=== PATIENT | female | born 1980 | race Caucasian/White ===

== ENCOUNTER 2020-11-28 07:31 | Emergency (ER) | payer MEDICAID ==
[2020-11-28] MEDS ORDERED: Sodium Chloride 0.9% 10 ML Syringe FLUSH PRN (07:43)
[2020-11-28] MEDS ORDERED: Sodium Chloride 0.9% 1,000 ML IV ONE (07:45)
--- NOTE | 2020-11-28 10:29 | EDM.PDOC ---
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 She states she was seen in the clinic on Sunday and had US but dates variable 5-8 weeks per chart plus she said they saw some bleeding (although since I have no access to those records unsure what she means by this). She then went home and noted last night to started having some cramping, woke up this morning with gush of blood and now having cramping although since getting to the ER has been decreasing in nature. She had an episode of light headedness when sitting up on ER bed but that has resolved. 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 duodenal switch Meds--PNV, progesterone Tob--former EtOH--rare Drugs--denies NKDA Left Abdomen Pain Score (Numeric/FACES): 8 - Related Data Allergies Allergy/AdvReac Type Severity Reaction Status Date / Time No Known Allergies Allergy Verified 07/28/16 09:24 Home Meds: Home Meds Ferrous Fumarate [Ferrocite] 324 mg PO DAILY 10/30/15 [History] Omeprazole 20 mg PO BID 10/30/15 [History] Ibuprofen 600 mg PO Q6H PRN 11/21/15 [History] Multivitamin [Multi-Vitamin Daily] 1 tab PO BID 07/26/16 [History] Cyanocobalamin (Vitamin B12) [Vitamin B12] 1,000 mcg PO DAILY 07/28/16 [History] Vitamin B Complex [B Complex] 1 tab PO DAILY 07/28/16 [History] Progesterone, Micronized [Progesterone] 100 mg PO DAILY 11/28/20 [History] Past Medical History - Past Health History Medical/Surgical History: Denies Medical/Surgical History HEENT History: Reports: Impaired Vision Gastrointestinal History: Reports: GERD Genitourinary History: Reports: None 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: Musculoskeletal History: Reports: Back Pain, Chronic Endocrine/Metabolic History: Reports: Obesity/BMI 30+ - Infectious Disease History Infectious Disease History: Reports: Chicken Pox - Past Surgical History HEENT Surgical History: Reports: None GI Surgical History: Reports: None Social & Family History - Tobacco Use Tobacco Use Status *Q: Never Tobacco User - Caffeine Use Caffeine Use: Reports: Soda - Recreational Drug Use Recreational Drug Use: No ED ROS GENERAL - Review of Systems Review Of Systems: See Below Constitutional: Reports: No Symptoms HEENT: Reports: No Symptoms Respiratory: Reports: No Symptoms Cardiovascular: Reports: No Symptoms Endocrine: Reports: No Symptoms GI/Abdominal: Reports: Abdominal Pain (cramping) : Reports: Other (vaginal bleeding in ) Musculoskeletal: Reports: No Symptoms Skin: Reports: No Symptoms Neurological: Reports: Dizziness Psychiatric: Reports: No Symptoms Hematologic/Lymphatic: Reports: No Symptoms Immunologic: Reports: No Symptoms ED EXAM - Physical Exam Exam: See Below Exam Limited By: No Limitations General Appearance: Alert, WD/WN, No Apparent Distress, Obese (morbid obesity limits exam) Eye Exam: Bilateral Eye: EOMI, Normal Inspection, PERRL Ears: Normal External Exam Nose: Normal Inspection Throat/Mouth: Normal Inspection, Normal Oropharynx Head: Atraumatic, Normocephalic Neck: Normal Inspection, Supple, Non-Tender, Full Range of Motion Respiratory/Chest: No Respiratory Distress, Lungs Clear, Normal Breath Sounds, No Accessory Muscle Use Cardiovascular: Normal Peripheral Pulses, Regular Rate, Rhythm, No Edema, No Murmur GI/Abdominal Exam: Normal Bowel Sounds, Soft, Non-Tender Rectal Exam: Deferred Back Exam: Normal Inspection Extremities: Normal Inspection, Normal Range of Motion, No Pedal Edema, Normal Capillary Refill Neurological: Alert, Oriented, Normal Cognition, Normal Gait, No Motor/Sensory Deficits Psychiatric: Normal Affect, Normal Mood Skin Exam: Warm, Dry, Intact, Normal Color Course - Vital Signs Text/Narrative:: 1020--in room to examine patient/pelvic. noted to have large bloody area on chux pad and clots external. 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 large lighted speculum inserted, noted for some clots in vaginal vault & at cervical os. Vaginal vault cleaned out with ring forceps/gauze with good visualization of cervical os--no active bleeding observed. speculum removed and bimanual--noted for cervical os to be soft/shortened/open. Majo RN at bedside for chaparon/assistance. d/w patient today's labs and plan for US but likely miscarriage; due to amount of bleeding, systolic BPs-90-100, and episode at presentation of lightheaded will repeat CBC at noon. verbalize understanding/all questions answered at this time 1148--notified by [employer] tech that preliminary reading is for uterus full of ecogenic material, no sac identified (was identified on Sunday US per his review of previous records/reports); final radiology reading pending. will recheck H/H at 1200, if stable plan for d/c and information assurance analyst follow up tomorrow in clinic. patient verbalized understanding/agreement with plan of care 1242--repeat CBC returned fairly unchanged/stable. initial H/H-12.2/37.8, 4 hour repeat 11.7/34.7. patient has been up in room to BR without any further episodes of lightheaded, she report bleeding has decreased. ready for d/c at this time Last Recorded V/S: Last Vital Signs Temp 97.9 F 11/28/20 07:34 Pulse 67 11/28/20 07:34 Resp 16 11/28/20 07:34 BP 107/63 11/28/20 07:34 Pulse Ox 100 11/28/20 07:34 - Orders/Labs/Meds Orders: Active Orders 24 hr Category Date Time Status OB 1st Tri Sgl 1st Gest [US] Stat Exams 11/28/20 10:21 Taken Sodium Chloride 0.9% [Saline Flush] Med 11/28/20 07:43 Active 10 ml FLUSH ASDIRECTED PRN Saline Lock Insert [OM.PC] Routine Oth 11/28/20 07:43 Ordered Medication Orders Sodium Chloride (Sodium Chloride 0.9% 10 Ml Syringe) 10 ml FLUSH ASDIRECTED PRN PRN Reason: Keep Vein Open Last Admin: 11/28/20 08:03 Dose: 10 ml Documented by: ERICA Labs: Laboratory Tests 11/28/20 11/28/20 11/28/20 Range/Units 08:05 08:05 08:05 WBC 7.2 (4.5-11.0) K/uL RBC 4.15 (3.30-5.50) M/uL Hgb 12.2 (12.0-15.0) g/dL Hct 37.8 (36.0-48.0) % MCV 91 (80-98) fL MCH 29 (27-31) pg MCHC 32 (32-36) % Plt Count 219 (150-400) K/uL Neut % (Auto) 62 (36-66) % Lymph % (Auto) 26 (24-44) % [place] % (Auto) 9 H (2-6) % Eos % (Auto) 3 (2-4) % Baso % (Auto) 0 (0-1) % Sodium 140 (140-148) mmol/L Potassium 4.1 (3.6-5.2) mmol/L Chloride 105 (100-108) mmol/L Carbon Dioxide 26 (21-32) mmol/L Anion Gap 9.0 (5.0-14.0) mmol/L BUN 16 (7-18) mg/dL Creatinine 0.8 (0.6-1.0) mg/dL Est Cr Clr Drug Dosing 96.71 mL/min Estimated GFR (MDRD) > 60 (>60) Glucose 93 (74-106) mg/dL Calcium 9.3 (8.5-10.1) mg/dL HCG, Quant (0-6) mIU/mL Blood Type O POSITIVE Gel Antibody Screen Negative 11/28/20 11/28/20 Range/Units 08:05 12:00 WBC 7.1 (4.5-11.0) K/uL RBC 3.80 (3.30-5.50) M/uL Hgb 11.7 L (12.0-15.0) g/dL Hct 34.7 L (36.0-48.0) % MCV 91 (80-98) fL MCH 31 (27-31) pg MCHC 34 (32-36) % Plt Count 201 (150-400) K/uL Neut % (Auto) 58 (36-66) % Lymph % (Auto) 28 (24-44) % [place] % (Auto) 11 H (2-6) % Eos % (Auto) 3 (2-4) % Baso % (Auto) 1 (0-1) % Sodium (140-148) mmol/L Potassium (3.6-5.2) mmol/L Chloride (100-108) mmol/L Carbon Dioxide (21-32) mmol/L Anion Gap (5.0-14.0) mmol/L BUN (7-18) mg/dL Creatinine (0.6-1.0) mg/dL Est Cr Clr Drug Dosing mL/min Estimated GFR (MDRD) (>60) Glucose (74-106) mg/dL Calcium (8.5-10.1) mg/dL HCG, Quant 53744 H (0-6) mIU/mL Blood Type Gel Antibody Screen previous HGC--28,755 on Sunday 11/26 Meds: Medications Generic Name Dose Route Start Last Admin Trade Name Freq PRN Reason Stop Dose Admin Sodium Chloride 10 ml 11/28/20 07:43 11/28/20 08:03 Sodium Chloride 0.9% 10 Ml Syringe FLUSH 10 ml ASDIRECTED PRN Administration Keep Vein Open Discontinued Medications Generic Name Dose Route Start Last Admin Trade Name Freq PRN Reason Stop Dose Admin Sodium Chloride 1,000 mls @ 500 mls/hr 11/28/20 07:45 11/28/20 08:03 Normal Saline IV 11/28/20 09:44 500 mls/hr .BOLUS ONE Administration Departure - Departure Time of Disposition: 12:44 Disposition: Home, Self-Care 01 Condition: Good Clinical Impression: Incomplete miscarriage, Morbid obesity, Mild anemia - Discharge Information *PRESCRIPTION DRUG MONITORING PROGRAM REVIEWED*: Not Applicable *COPY OF PRESCRIPTION DRUG MONITORING REPORT IN PATIENT JARED: Not Applicable Instructions: Miscarriage, [id number] Referrals: Arabella Parrish PA-C [Primary Care Provider] - Forms: ED Department Discharge, ED Return to Work/School Form Additional Instructions: Ensure you are drinking plenty of fluids--water/juice/sports drinks of choice to stay well hydrated You may use ibuprofen (Motrin, Advil) for cramping/pelvic pain as needed per over the counter label Please call your clinic tomorrow for ER follow up and 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 Return to the ER should you have any further concerns with increased bleeding, lightheaded/dizzy or otherwise Sepsis Event Note (ED) - Evaluation Sepsis Screening Result: No Definite Risk - Focused Exam Vital Signs: Vital Signs Temp Pulse Resp BP Pulse Ox 11/28/20 07:34 97.9 F 67 16 107/63 100 - My Orders Last 24 Hours: My Active Orders 11/28/20 07:43 Sodium Chloride 0.9% [Saline Flush] 10 ml FLUSH ASDIRECTED PRN Saline Lock Insert [OM.PC] Routine 11/28/20 10:21 OB 1st Tri Sgl 1st Gest [US] Stat - Assessment/Plan Last 24 Hours: My Active Orders 11/28/20 07:43 Sodium Chloride 0.9% [Saline Flush] 10 ml FLUSH ASDIRECTED PRN Saline Lock Insert [OM.PC] Routine 11/28/20 10:21 OB 1st Tri Sgl 1st Gest [US] Stat
[2020-11-28 12:58] VITALS: BP 101/63; PULSE 69
--- NOTE | 2020-11-29 09:20 | US ---
INDICATION: vaginal bleeding/cramping COMPARISON: Vaginal bleeding and cramping FINDINGS: Uterus measures 12.1 x 6.0 x 5.6 cm. There is endometrial thickening at 1.7 cm. It is mildly heterogeneous. No gestational sac is identified. There is no evidence for heart activity IMPRESSION: No evidence of gestational sac or pole In the appropriate clinical setting this is consistent with spontaneous
== END 2020-11-28 12:59 | disposition home or self-care (01) ==
LOC: JP.ED 07:31
DX: O03.4 Incomplete spontaneous abortion without complication (principal); D64.9 Anemia, unspecified; E66.01 Morbid (severe) obesity due to excess calories; K21.9 Gastro-esophageal reflux disease without esophagitis; Z68.41 Body mass index [BMI] 40.0-44.9, adult; Z87.891 Personal history of nicotine dependence; Z79.899 Other long term (current) drug therapy
CPT/HCPCS: 36415; 76801; 76801-26; 80048; 84702; 85025; 86850; 86900; 86901; 99283; 99284-25; J7030